=== PATIENT | female | born 1995 | race Caucasian/White ===

== ENCOUNTER 2017-04-28 17:52 | Emergency (ER) | payer MEDICAID ==
[~2017-04-28] VITALS: Ht 157.5 cm; Wt 81.8 kg
[2017-04-28 18:04] VITALS: BP 130/64; TEMP 98.2
[2017-04-28 21:37] VITALS: PULSE 85
== END 2017-04-28 21:39 | disposition home or self-care (01) ==
LOC: COL.ER 17:52
DX: O26.893 Other specified pregnancy related conditions, third trimester (principal); M25.561 Pain in right knee; O99.343 Other mental disorders complicating pregnancy, third trimester; F31.9 Bipolar disorder, unspecified; O99.333 Smoking (tobacco) complicating pregnancy, third trimester; F17.210 Nicotine dependence, cigarettes, uncomplicated; Z3A.30 30 weeks gestation of pregnancy

== ENCOUNTER 2017-06-06 22:26 | Outpatient (CLI) | payer MEDICAID ==
[~2017-06-06] VITALS: Ht 157.5 cm; Wt 81.8 kg
[2017-06-06 22:41] VITALS: BP 140/87; PULSE 82; TEMP 98.2
[2017-06-06 22:45] VITALS: BP 140/87; PULSE 82; TEMP 98.2
[2017-06-06] MEDS ORDERED: MELATONIN3 MG PO (22:49)
[2017-06-06] MEDS ORDERED: PRENATAL1 TA7 PO (22:49)
[2017-06-06 23:45] VITALS: BP 150/76; PULSE 91
[2017-06-07 00:02] LABS: COLLECTION METHOD CATHETER
[2017-06-07 00:10] LABS: PH 7 (5-8); SQUAMOUS EPITHELIAL 0-2 /hpf; URINE APPEARANCE Clear; URINE BACTERIA None Seen /hpf; URINE BILIRUBIN Negative (NEGATIVE); URINE BLOOD Negative (NEGATIVE); URINE COLOR Straw; URINE GLUCOSE Negative (NEGATIVE); URINE KETONE Negative (NEGATIVE); URINE LEUKOCYTE ESTERASE Negative (NEGATIVE); URINE PROTEIN(semi-quant) Negative (NEGATIVE); URINE RBC 0-2 /hpf; URINE UROBILINOGEN Negative (NEGATIVE); URINE WBC 0-2 /hpf
[2017-06-07 00:15] VITALS: BP 126/65; PULSE 81
== END 2017-06-07 00:35 | disposition home or self-care (01) ==
LOC: LDRO 22:26
PROVIDERS: Obstetrics & Gynecology
DX: O26.893 Other specified pregnancy related conditions, third trimester (principal); R10.9 Unspecified abdominal pain; Z3A.35 35 weeks gestation of pregnancy

== ENCOUNTER 2017-06-18 10:02 | Inpatient (IN) | payer MEDICAID ==
[~2017-06-18] VITALS: Ht 157.5 cm; Wt 85.5 kg
[~2017-06-18 10:02] MED LIST: MELATONIN3 MG PO; PRENATAL1 TA7 PO
[2017-07-11] VITALS (40 sets, daily range): BP systolic 108–1113; BP diastolic 57–92; PULSE 69–101; TEMP 98–98.8
[2017-07-11] MEDS ORDERED: ALBUTEROL0.83 MG/ML IH (07:40)
[2017-07-11] MEDS ORDERED: BREO IH (07:41)
[2017-07-11] MEDS ORDERED: SPIRIVA RE2.5 MCG/Ac IH (07:41)
[2017-07-11 08:06] LABS: HEMATOCRIT 34.5 % (37.0-47.0); HEMOGLOBIN 11.6 g/dl (12.5-16.0); MEAN CELL VOLUME 95 fl (80.0-100.0); MEAN CORPUSCULAR HEMOGLOBIN 32 pg (27.0-31.0); MEAN CORPUSCULAR HGB CONC 34 g/dl (33.0-37.0); MEAN PLATELET VOLUME 9.8 fl (7.4-10.4); PLATELET COUNT 288 K/mm3 (130-400); RED BLOOD COUNT 3.64 M/mm3 (4.10-5.30); WHITE BLOOD COUNT 16.1 K/mm3 (4.8-10.8)
[2017-07-11 08:07] LABS: ADD PATHOLOGY DIFF REVIEW NO
[2017-07-11 10:09] LABS: BAND 21 % (0-10); EOSINOPHIL 1 % (0-4); LYMPHOCYTE 25 % (20.0-51.0); NEUTROPHILS 47 % (42.0-75.2); PLATELET ESTIMATE NORMAL (NORMAL); TOTAL CELLS COUNTED 100
[2017-07-11] MEDS ORDERED: MOTRIN 800800 MG/TAB PO (11:16)
[2017-07-11] MEDS ORDERED: PERCOCET 325 MG1 TA2 PO (11:16)
[2017-07-12 00:32] VITALS: BP 134/84; PULSE 83
[2017-07-12 03:45] VITALS: BP 121/72; PULSE 88
[2017-07-12 07:45] VITALS: BP 113/66; PULSE 80; TEMP 98.4
[2017-07-12 11:30] VITALS: BP 122/69; PULSE 86; TEMP 98.2
[2017-07-12 16:00] VITALS: BP 133/63; PULSE 99; TEMP 98.1
[2017-07-12 22:10] VITALS: BP 138/72; PULSE 87; TEMP 98.6
[2017-07-13 07:00] VITALS: BP 132/79; PULSE 90; TEMP 98.3
== END 2017-07-13 11:03 | disposition home or self-care (01) | DRG 767 ==
LOC: EDSTATUS 07-07 08:20 → LDRO 07-07 10:02 → LDR 07-11 07:04 → OB 07-11 19:45
PROVIDERS: Obstetrics & Gynecology
PROC: 10D07Z6 Extraction of Products of Conception, Vacuum, Via Natural or Artificial Opening (ICD-10-PCS; principal; 2017-07-11)
PROC: 10D17Z9 Manual Extraction of Products of Conception, Retained, Via Natural or Artificial Opening (ICD-10-PCS; 2017-07-11)
PROC: 3E033VJ Introduction of Other Hormone into Peripheral Vein, Percutaneous Approach (ICD-10-PCS; 2017-07-11)
PROC: 0W8NXZZ Division of Female Perineum, External Approach (ICD-10-PCS; 2017-07-11)
DX: O48.0 Post-term pregnancy (principal); O76 Abnormality in fetal heart rate and rhythm complicating labor and delivery; O75.89 Other specified complications of labor and delivery; O73.0 Retained placenta without hemorrhage; O99.334 Smoking (tobacco) complicating childbirth; F17.210 Nicotine dependence, cigarettes, uncomplicated; Z3A.40 40 weeks gestation of pregnancy; Z37.0 Single live birth
CPT/HCPCS: J0690; J2210; J2590; J7120

== ENCOUNTER 2018-01-26 19:20 | Emergency (ER) | payer MEDICAID ==
[~2018-01-26] VITALS: Ht 160 cm; Wt 65.9 kg
[~2018-01-26 19:20] MED LIST changes: +ALBUTEROL0.83 MG/ML IH; +BREO IH; +MOTRIN 800800 MG/TAB PO; +PERCOCET 325 MG1 TA2 PO; +SPIRIVA RE2.5 MCG/Ac IH
[2018-01-26 19:22] VITALS: BP 143/79; TEMP 98.5
[2018-01-26] MEDS ORDERED: ZOFRAN ODT4 MG PO (19:55)
[2018-01-26 20:05] VITALS: PULSE 74
== END 2018-01-26 20:05 | disposition home or self-care (01) ==
LOC: COL.ER 19:20
DX: M79.7 Fibromyalgia (principal); J45.909 Unspecified asthma, uncomplicated

== ENCOUNTER 2018-02-15 10:25 | Emergency (ER) | payer MEDICAID ==
[~2018-02-15] VITALS: Ht 157.5 cm; Wt 69.3 kg
[~2018-02-15 10:25] MED LIST changes: +ZOFRAN ODT4 MG PO
[2018-02-15 10:27] VITALS: BP 118/75; PULSE 113; TEMP 99
[2018-02-15 11:14] LABS: BASO # 0.1 (0.0-0.2); BASO % 0.4 % (0.0-2.0); EOS # 0.1 (0.0-0.7); EOS % 0.8 % (0-4.0); GRAN # 13.3 (1.4-6.5); GRAN % 89.1 % (42.2-75.2); HEMATOCRIT 39.2 % (37.0-47.0); HEMOGLOBIN 13.2 g/dl (12.5-16.0); LYMPH # 0.6 (1.2-3.4); LYMPH % 4.1 % (20.0-51.0); MEAN CELL VOLUME 91 fl (80.0-100.0); MEAN CORPUSCULAR HEMOGLOBIN 31 pg (27.0-31.0); MEAN CORPUSCULAR HGB CONC 34 g/dl (33.0-37.0); MEAN PLATELET VOLUME 9.2 fl (7.4-10.4); MONO # 0.7 (0.1-0.6); MONO % 4.5 % (1.7-9.3); PLATELET COUNT 251 K/mm3 (130-400); REDCELL DISTRIBUTION WIDTH-CV 13.7 % (11.5-14.5)
[2018-02-15 11:24] LABS: CALCIUM 9.3 mg/dL (8.4-10.2); CREATININE, serum 0.63 mg/dL (0.52-1.25); POTASSIUM 3.9 mmol/L (3.4-5.0)
[2018-02-15 11:25] LABS: COLLECTION METHOD CATHETER
[2018-02-15 11:31] LABS: PH 7 (5-8); SQUAMOUS EPITHELIAL 0-2 /hpf; URINE APPEARANCE Clear; URINE BACTERIA Rare /hpf; URINE BILIRUBIN Negative (NEGATIVE); URINE BLOOD 1+ (NEGATIVE); URINE COLOR Straw; URINE GLUCOSE Negative (NEGATIVE); URINE KETONE Trace (NEGATIVE); URINE LEUKOCYTE ESTERASE Negative (NEGATIVE); URINE NITRATE Negative (NEGATIVE); URINE PROTEIN(semi-quant) Negative (NEGATIVE); URINE RBC None Seen /hpf; URINE UROBILINOGEN Negative (NEGATIVE)
[2018-02-15] MEDS ORDERED: NORCO 325 MG-51 TAB PO (12:03)
[2018-02-15] MEDS ORDERED: ZOFRAN ODT4 MG PO (14:30)
[2018-02-16] VITALS (79 sets, daily range): O2SAT 95–99
[2018-02-17] VITALS (257 sets, daily range): O2SAT 94–100
== END 2018-02-15 12:19 | disposition home or self-care (01) ==
LOC: COL.ER 10:25
PROVIDERS: Physician Assistant
DX: R52 Pain, unspecified (principal); D72.829 Elevated white blood cell count, unspecified; F41.9 Anxiety disorder, unspecified; F32.9 Major depressive disorder, single episode, unspecified; M79.7 Fibromyalgia

== ENCOUNTER 2018-02-16 15:14 | Inpatient (IN) | payer MEDICAID ==
[~2018-02-16] VITALS: Ht 157.5 cm; Wt 70.4 kg
[~2018-02-16 15:14] MED LIST changes: +NORCO 325 MG-51 TAB PO
[2018-02-16 16:05] LABS: COLLECTION METHOD CLEAN CATCH
[2018-02-16 16:12] LABS: HEMATOCRIT 37.6 % (37.0-47.0); HEMOGLOBIN 12.7 g/dl (12.5-16.0); MEAN CELL VOLUME 90 fl (80.0-100.0); MEAN CORPUSCULAR HEMOGLOBIN 31 pg (27.0-31.0); MEAN CORPUSCULAR HGB CONC 34 g/dl (33.0-37.0); MEAN PLATELET VOLUME 9.4 fl (7.4-10.4); PLATELET COUNT 192 K/mm3 (130-400); RED BLOOD COUNT 4.16 M/mm3 (4.10-5.30)
[2018-02-16 16:19] LABS: MUCOUS Present /lpf; PH 5 (5-8); URINE APPEARANCE Cloudy; URINE BACTERIA Rare /hpf; URINE BILIRUBIN Positive (NEGATIVE); URINE BLOOD 2+ (NEGATIVE); URINE COLOR Amber; URINE GLUCOSE Negative (NEGATIVE); URINE KETONE 1+ (NEGATIVE); URINE LEUKOCYTE ESTERASE Negative (NEGATIVE); URINE NITRATE Negative (NEGATIVE); URINE PROTEIN(semi-quant) 2+ (NEGATIVE); URINE UROBILINOGEN >=4.0 mg/dL (NEGATIVE)
[2018-02-16 16:32] LABS: ALBUMIN 3.2 gm/dL (3.5-5.0); BILIRUBIN,TOTAL 1.2 mg/dL (0.0-1.0); CALCIUM 8.4 mg/dL (8.4-10.2); CREATININE, serum 1.1 mg/dL (0.52-1.25); POTASSIUM 3.4 mmol/L (3.4-5.0); TOTAL PROTEIN 6.1 gm/dL (6.4-8.2)
[2018-02-16 16:40] LABS: BAND 27 % (0-10); EOSINOPHIL 3 % (0-4); LYMPHOCYTE 3 % (20.0-51.0); NEUTROPHILS 66 % (42.0-75.2); PLATELET ESTIMATE NORMAL (NORMAL)
[2018-02-16 16:41] LABS: ANISOCYTOSIS 1+
[2018-02-16 19:02] LABS: GLUCOSE,CSF 52 mg/dL (40-70); TOTAL PROTEIN,CSF 21 mg/dL (15-45)
[2018-02-16 19:18] LABS: CSF APPEARANCE CLEAR; CSF COLOR COLORLESS; CSF RBC 3 /mm3 (0-0)
[2018-02-16 19:19] LABS: CSF COLOR COLORLESS
[2018-02-16 19:20] LABS: CSF APPEARANCE CLEAR; CSF RBC 0 /mm3 (0-0)
[2018-02-16 19:53] LABS: CSF MONONUCLEAR 0 % (70-100); CSF MONONUCLEAR 10 % (70-100); CSF POLYMORPHONUCLEAR 0 % (0-6)
[2018-02-16 21:00] VITALS: BP 81/49; BP 99/58; PULSE 87; TEMP 97.9
[2018-02-16 22:02] LABS: SALICYLATE < 1.0 mg/dL
[2018-02-16 22:19] LABS: LITHIUM < 0.2 mmol/L (0.6-1.2)
[2018-02-16 22:26] LABS: TRICYCLIC ANTIDEPRESS URINE NEGATIVE
[2018-02-17] VITALS: BP 99/59; PULSE 76; TEMP 97.4
[2018-02-17 04:00] VITALS: BP 105/60; PULSE 61; TEMP 97.5
[2018-02-17 05:52] LABS: MEAN CELL VOLUME 89 fl (80.0-100.0); MEAN CORPUSCULAR HGB CONC 34 g/dl (33.0-37.0); MEAN PLATELET VOLUME 9.9 fl (7.4-10.4); PLATELET COUNT 175 K/mm3 (130-400); RED BLOOD COUNT 3.44 M/mm3 (4.10-5.30); REDCELL DISTRIBUTION WIDTH-CV 14.2 % (11.5-14.5)
[2018-02-17 05:55] LABS: HEMATOCRIT 30.5 % (37.0-47.0); MEAN CORPUSCULAR HEMOGLOBIN 30 pg (27.0-31.0)
[2018-02-17 05:56] LABS: HEMOGLOBIN 10.3 g/dl (12.5-16.0)
[2018-02-17 06:10] LABS: ALBUMIN 2.4 gm/dL (3.5-5.0); BILIRUBIN,TOTAL 0.3 mg/dL (0.0-1.0); CREATININE, serum 0.62 mg/dL (0.52-1.25); POTASSIUM 3.8 mmol/L (3.4-5.0); TOTAL PROTEIN 4.9 gm/dL (6.4-8.2)
[2018-02-17 06:50] LABS: BAND 36 % (0-10); LYMPHOCYTE 6 % (20.0-51.0); NEUTROPHILS 58 % (42.0-75.2)
[2018-02-17 06:53] LABS: PLATELET ESTIMATE NORMAL (NORMAL)
[2018-02-17 06:54] LABS: BURR CELLS 1+; OVALOCYTES 2+
[2018-02-17 08:15] VITALS: BP 103/61; PULSE 61; TEMP 98
[2018-02-17 14:37] LABS: COLLECTION METHOD CLEAN CATCH
[2018-02-17 14:44] LABS: MUCOUS Present /lpf; PH 6 (5-8); SQUAMOUS EPITHELIAL 0-2 /hpf; URINE APPEARANCE Hazy; URINE BACTERIA Rare /hpf; URINE BILIRUBIN Negative (NEGATIVE); URINE BLOOD 2+ (NEGATIVE); URINE COLOR Yellow; URINE GLUCOSE Negative (NEGATIVE); URINE KETONE Trace (NEGATIVE); URINE LEUKOCYTE ESTERASE Negative (NEGATIVE); URINE NITRATE Negative (NEGATIVE); URINE PROTEIN(semi-quant) Negative (NEGATIVE); URINE RBC 0-2 /hpf; URINE UROBILINOGEN Negative (NEGATIVE)
[2018-02-17] MEDS ORDERED: TYLENOL 325MG325 MG PO (15:13)
[2018-02-17] MEDS ORDERED: OMNICEF 300MG300 MG PO (15:14)
[2018-02-18 03:00] LABS: BARBITURATE SCREEN BLOOD Not Detected (()); BENZODIAZEPINE SCREEN BLOOD Not Detected (()); DRUG SCREEN BLD - ALCOHOL None Detected (()); SALICYLATE SCREEN BLOOD Not Detected (()); TRICYCLIC SCREEN BLOOD Not Detected (())
== END 2018-02-17 15:39 | disposition left against medical advice (07) | DRG 872 ==
LOC: COL.ER 15:14 → ICU 20:10
PROVIDERS: Emergency Medicine; Nurse Practitioner Family; Physician Assistant
PROC: 009U3ZX Drainage of Spinal Canal, Percutaneous Approach, Diagnostic (ICD-10-PCS; principal; 2018-02-16)
DX: A41.9 Sepsis, unspecified organism (principal); N39.0 Urinary tract infection, site not specified; E87.2 Acidosis; E87.1 Hypo-osmolality and hyponatremia; F31.9 Bipolar disorder, unspecified; M79.7 Fibromyalgia; J45.909 Unspecified asthma, uncomplicated; F17.210 Nicotine dependence, cigarettes, uncomplicated; E87.8 Other disorders of electrolyte and fluid balance, not elsewhere classified
CPT/HCPCS: 99223-AI; J0133; J0696; J1100; J2270; J2405; J2543; J2920; J3370; J7030; J7040; J7050; Q9967

== ENCOUNTER → 2018-03-10 | Outpatient (CLI) | payer MEDICAID ==
[~2018-03-10] MED LIST changes: +OMNICEF 300MG300 MG PO; +TYLENOL 325MG325 MG PO
== END ==
LOC: COL.RAD 03-03 13:15
DX: M54.5 Low back pain (principal)

== ENCOUNTER 2018-04-07 20:35 | Emergency (ER) | payer MEDICAID ==
[~2018-04-07] VITALS: Ht 157.5 cm; Wt 65.9 kg
[2018-04-07 20:42] VITALS: TEMP 98.7
[2018-04-07 21:24] LABS: BASO # 0.1 (0.0-0.2); BASO % 0.5 % (0.0-2.0); EOS # 0.3 (0.0-0.7); EOS % 2.6 % (0-4.0); GRAN # 5.6 (1.4-6.5); GRAN % 57.7 % (42.2-75.2); HEMATOCRIT 38.2 % (37.0-47.0); HEMOGLOBIN 13.1 g/dl (12.5-16.0); LYMPH # 2.9 (1.2-3.4); LYMPH % 30.4 % (20.0-51.0); MEAN CELL VOLUME 88 fl (80.0-100.0); MEAN CORPUSCULAR HEMOGLOBIN 30 pg (27.0-31.0); MEAN CORPUSCULAR HGB CONC 34 g/dl (33.0-37.0); MEAN PLATELET VOLUME 8.9 fl (7.4-10.4); MONO # 0.8 (0.1-0.6); MONO % 8.3 % (1.7-9.3); PLATELET COUNT 264 K/mm3 (130-400); RED BLOOD COUNT 4.33 M/mm3 (4.10-5.30); REDCELL DISTRIBUTION WIDTH-CV 13.2 % (11.5-14.5)
[2018-04-07 22:08] LABS: BILIRUBIN,TOTAL 0.2 mg/dL (0.0-1.0); CALCIUM 9.1 mg/dL (8.4-10.2); CREATININE, serum 0.6 mg/dL (0.52-1.25); POTASSIUM 3.7 mmol/L (3.4-5.0)
[2018-04-07 22:27] LABS: COLLECTION METHOD CATHETER
[2018-04-07 22:30] LABS: C-REACTIVE PROTEIN 0.8 mg/dL (0.0-0.9)
[2018-04-07 22:37] LABS: MUCOUS Present /lpf; PH 6 (5-8); URINE APPEARANCE Hazy; URINE BACTERIA Rare /hpf; URINE BILIRUBIN Negative (NEGATIVE); URINE BLOOD 2+ (NEGATIVE); URINE COLOR Yellow; URINE GLUCOSE Negative (NEGATIVE); URINE KETONE Negative (NEGATIVE); URINE LEUKOCYTE ESTERASE Trace (NEGATIVE); URINE NITRATE Negative (NEGATIVE); URINE PROTEIN(semi-quant) Negative (NEGATIVE); URINE UROBILINOGEN Negative (NEGATIVE)
[2018-04-07 23:31] VITALS: BP 112/65; PULSE 69
[2018-04-07] MEDS ORDERED: MACROBID 1100 MG/CAP PO (23:31)
== END 2018-04-07 23:45 | disposition home or self-care (01) ==
LOC: COL.ER 20:35
PROVIDERS: Physician Assistant
DX: O23.91 Unspecified genitourinary tract infection in pregnancy, first trimester (principal); O99.331 Smoking (tobacco) complicating pregnancy, first trimester; F17.210 Nicotine dependence, cigarettes, uncomplicated; Z90.89 Acquired absence of other organs; Z3A.01 Less than 8 weeks gestation of pregnancy

== ENCOUNTER 2018-04-15 18:50 | Emergency (ER) | payer MEDICAID ==
[~2018-04-15] VITALS: Ht 157.5 cm; Wt 68.2 kg
[~2018-04-15 18:50] MED LIST changes: +MACROBID 1100 MG/CAP PO
[2018-04-15 18:54] VITALS: TEMP 98.8
[2018-04-15] MEDS ORDERED: ZOLOFT 50MG50 MG PO (19:01)
[2018-04-15 19:14] LABS: COLLECTION METHOD CLEAN CATCH
[2018-04-15 19:17] LABS: BASO # 0.1 (0.0-0.2); BASO % 0.4 % (0.0-2.0); EOS # 0.3 (0.0-0.7); EOS % 2.2 % (0-4.0); GRAN # 6.5 (1.4-6.5); GRAN % 55.3 % (42.2-75.2); HEMOGLOBIN 12.8 g/dl (12.5-16.0); LYMPH # 4.1 (1.2-3.4); MEAN CELL VOLUME 89 fl (80.0-100.0); MEAN CORPUSCULAR HEMOGLOBIN 30 pg (27.0-31.0); MEAN CORPUSCULAR HGB CONC 34 g/dl (33.0-37.0); MEAN PLATELET VOLUME 8.7 fl (7.4-10.4); MONO # 0.8 (0.1-0.6); MONO % 6.6 % (1.7-9.3); PLATELET COUNT 294 K/mm3 (130-400); RED BLOOD COUNT 4.25 M/mm3 (4.10-5.30); REDCELL DISTRIBUTION WIDTH-CV 13.2 % (11.5-14.5)
[2018-04-15 19:23] LABS: AMORPHOUS CRYSTAL Present /uL; MUCOUS Present /lpf; PH 6 (5-8); SQUAMOUS EPITHELIAL 0-2 /hpf; URINE APPEARANCE Hazy; URINE BACTERIA Rare /hpf; URINE BILIRUBIN Negative (NEGATIVE); URINE BLOOD Negative (NEGATIVE); URINE COLOR Yellow; URINE GLUCOSE Negative (NEGATIVE); URINE KETONE Negative (NEGATIVE); URINE LEUKOCYTE ESTERASE Negative (NEGATIVE); URINE NITRATE Negative (NEGATIVE); URINE PROTEIN(semi-quant) Negative (NEGATIVE); URINE RBC 0-2 /hpf; URINE UROBILINOGEN Negative (NEGATIVE)
[2018-04-15 19:28] LABS: BILIRUBIN,TOTAL 0.1 mg/dL (0.0-1.0); CALCIUM 9.8 mg/dL (8.4-10.2); CREATININE, serum 0.51 mg/dL (0.52-1.25); POTASSIUM 3.6 mmol/L (3.4-5.0); TOTAL PROTEIN 6.9 gm/dL (6.4-8.2)
[2018-04-15 21:59] VITALS: BP 114/59; PULSE 71
== END 2018-04-15 22:24 | disposition home or self-care (01) ==
LOC: COL.ER 18:50
PROVIDERS: Emergency Medicine
DX: O20.0 Threatened abortion (principal); O99.331 Smoking (tobacco) complicating pregnancy, first trimester; Z3A.08 8 weeks gestation of pregnancy; F17.210 Nicotine dependence, cigarettes, uncomplicated

== ENCOUNTER 2018-07-12 18:39 | Emergency (ER) | payer MEDICAID ==
[~2018-07-12] VITALS: Ht 157.5 cm; Wt 70.5 kg
[~2018-07-12 18:39] MED LIST changes: +ZOLOFT 50MG50 MG PO
[2018-07-12 18:42] VITALS: BP 105/65; TEMP 98.4
[2018-07-12 19:47] VITALS: PULSE 90
== END 2018-07-12 19:48 | disposition home or self-care (01) ==
LOC: COL.ER 18:39
DX: J06.9 Acute upper respiratory infection, unspecified (principal); F32.9 Major depressive disorder, single episode, unspecified; J45.909 Unspecified asthma, uncomplicated; F17.210 Nicotine dependence, cigarettes, uncomplicated; F41.9 Anxiety disorder, unspecified; Z90.89 Acquired absence of other organs

== ENCOUNTER 2018-09-09 21:28 | Outpatient (CLI) | payer OTHER, MEDICAID ==
[~2018-09-09] VITALS: Ht 157.5 cm; Wt 80.0 kg
--- NOTE | 2018-09-09 21:40 | NUR ---
Pt arrived on unit for complaints of ctx starting around 1830. Pt denies any leaking of fluid, reports some spotting but also reports issues with spotting from beginning of and reports normal movement. EFM and toco monitors started. Vital signs WNL. SVE 0/0/high with no signs of fluid or bleeding on exam. Spoke with Dr. Dias. Pt's complaints, SVE and FHR tracing reviewed. Orders for labor assessment received. Plan of care reviewed with pt.
[2018-09-09 21:46] VITALS: BP 115/62; PULSE 93; TEMP 98.5
--- NOTE | 2018-09-10 | NUR ---
Order for discharge home received. Pt discharged home ambulatory escorted by family member. Discharge instructions reviewed. Pt verbalized an understanding, agrees with the plan and states no questions or concerns.
== END 2018-09-10 | disposition home or self-care (01) ==
LOC: LDRO 21:28
DX: O26.893 Other specified pregnancy related conditions, third trimester (principal); R25.2 Cramp and spasm; Z3A.29 29 weeks gestation of pregnancy

== ENCOUNTER 2018-09-11 18:39 | Outpatient (CLI) | payer OTHER, MEDICAID ==
[~2018-09-11] VITALS: Ht 160 cm; Wt 80.9 kg
--- NOTE | 2018-09-11 18:55 | NUR ---
Pt arrives to unit ambulatory with complaint of contractions. Pt is a at 29 weeks and 4 days, 1 previous term vaginal delivery. Pt reports cramping and pain has gotten worse since yesterday. Was checked in the office on the and was closed. UA and affirm negative in office. Pt is unable to tell me how frequently she feels contractions. Pt oriented to room and changed into gown. EFM and toco explained and applied. Vital signs obtained. Plan of care reviewed. 1904 SVE /-3
[2018-09-11 19:30] VITALS: BP 112/73; PULSE 93; TEMP 98.7
[2018-09-11 20:00] VITALS: BP 113/62; PULSE 91
--- NOTE | 2018-09-11 20:00 | NUR ---
Monitors removed so patient can void. 1 contraction traced on toco. Pt does not appear to be in pain or having contractions.
[2018-09-11 20:40] VITALS: BP 125/71; PULSE 96
--- NOTE | 2018-09-11 20:40 | NUR ---
Pt discharged home at this time. Encouraged rest over the weekend and hydration. Discharge instructions and return precautions reviewed. Pt verbalized understanding.
[2018-09-11 20:43] LABS: TRICYCLIC ANTIDEPRESS URINE NEGATIVE
== END 2018-09-11 20:40 | disposition home or self-care (01) ==
LOC: LDRO 18:39
PROVIDERS: Obstetrics & Gynecology
DX: O62.9 Abnormality of forces of labor, unspecified (principal); Z3A.29 29 weeks gestation of pregnancy

== ENCOUNTER → 2018-09-13 | Outpatient (CLI) | payer OTHER, MEDICAID ==
[~2018-09-13] VITALS: Ht 160 cm; Wt 80.9 kg
[2018-09-13 17:34] VITALS: BP 115/67; PULSE 92; TEMP 98.4
[2018-09-13 17:45] VITALS: BP 115/67; PULSE 92; TEMP 98.4
--- NOTE | 2018-09-13 18:27 | NUR ---
1749 DR MADDEN NOTFIED OF PT PRESENCE AND ORDER FOR DISCHARGE RECD. PLAN DISCUSSED WITH PT AND VERBALIZES UNDERSTANDING AND ACCE[TANCE. NO CONTRACTIONS SINCE ADMISSION AND NO CHANGE IN SVE FROM YESTERDAY'S EXAM. 1754 DISCHARGED TO SELF CARE WITH INSTRUCTIONS.
== END ==
LOC: LDRO 17:08
DX: O62.9 Abnormality of forces of labor, unspecified (principal); Z3A.29 29 weeks gestation of pregnancy

== ENCOUNTER → 2018-10-20 | Outpatient (CLI) | payer OTHER, MEDICAID | LOC: LDRO 20:34 | DX: O26.893 Other specified pregnancy related conditions, third trimester (principal); R10.30 Lower abdominal pain, unspecified; R10.2 Pelvic and perineal pain; Z3A.35 35 weeks gestation of pregnancy ==

== ENCOUNTER 2018-11-01 21:02 | Outpatient (CLI) | payer OTHER, MEDICAID ==
[~2018-11-01] VITALS: Ht 162.6 cm; Wt 85.9 kg
--- NOTE | 2018-11-01 21:20 | NUR ---
2119 G2L1 36.6 WEEK GEST TO LR5 WITH C/O CONTRACTIONS SINCE YESTERDAY BECOMING WORSE TONIGHT. EFM ON. CONTRACTION NOTED ON MONITER AT 2129. PT C/O HAVING LOW ABD PAIN ABOUT EVERY TWO MINUTES THAT IS SHARP AND THEN GOES DULL. UTERUS PALPATED WITH PAIN AND REMAINS SOFT. FHT'S 170'S WITH ACCELS TO 180. SVE DONE WITH /-3. 2139 TO LL AND WATER GIVEN TO DRINK. ADM ASSESSMENT DONE.
[2018-11-01 21:30] VITALS: BP 137/75; PULSE 99; TEMP 98.6
[2018-11-01] MEDS ORDERED: TAMIFLU 75MG75 MG PO (21:31)
[2018-11-01 21:33] VITALS: BP 137/75; PULSE 99; TEMP 98.6
[2018-11-01 22:00] VITALS: BP 113/65; PULSE 99
--- NOTE | 2018-11-01 22:00 | NUR ---
2199 DR BROWN NOTIFIED OF PT AND COMPLAINT AND CONTRACTIONS AND FHT'S. FHT'S BASE 160 WITH GOOD VARIABILITY. MOM ASKED ON ADM IS SHE SMOKED AND SHE SAID YET BUT HAS NOT HAD A CIG FOR SEVERAL HOURS. STATES HAS NOT FELT THE BABY MOVE LATELY BUT BABY CAN BE SEEN MOVING. 2229 TURNED TO RIGHT LATERAL FOR COMFORT.
--- NOTE | 2018-11-01 22:40 | NUR ---
FHT BASE 130 WITH GOOD VARIABILTY. STATES ABD PAIN IS ABOUT THE SAME BUT IRREGULAR CONTRACTIONS NOTED BUT NOT CORRELATED WITH C/O PAIN. 2245 EFM OFF AND DISCHARGE INSTRUCTIONS GIVEN 2255 HOME WITH INSTRUCTIONS.
== END 2018-11-01 22:55 | disposition home or self-care (01) ==
LOC: LDRO 21:02
DX: O62.9 Abnormality of forces of labor, unspecified (principal); Z3A.36 36 weeks gestation of pregnancy

== ENCOUNTER 2018-11-06 21:01 | Outpatient (CLI) | payer OTHER, MEDICAID ==
[~2018-11-06] VITALS: Ht 157.5 cm; Wt 88.6 kg
[~2018-11-06 21:01] MED LIST changes: +TAMIFLU 75MG75 MG PO
--- NOTE | 2018-11-06 21:15 | NUR ---
at 37 weeks and 4 days arrives to unit with complaint of contractions about every 7-10 minutes at home. Pt reports the contractions take her breath away and are much worse than when she has been here before. Denies headaches, blurry vision, or RUQ pain. Pt oriented to room, bed in low and locked position, call light within reach. EFM and toco explained and applied. Pt denies LOF, reports she lost her mucous plus today, denies bleeding, reports good movement. SVE 3/80/-2 membranes intact. Vital signs obtained, admission assessment started.
[2018-11-06 21:30] VITALS: BP 133/78; PULSE 91; TEMP 97.8
--- NOTE | 2018-11-06 22:40 | NUR ---
SVE unchanged from previous exam. Pt discharged home at this time. Discharge instructions reviewed and return precautions explained to patient. Pt verbalized understanding. Pt seen walking off unit.
== END 2018-11-06 22:50 | disposition home or self-care (01) ==
LOC: LDRO 21:01
DX: O62.9 Abnormality of forces of labor, unspecified (principal); Z3A.37 37 weeks gestation of pregnancy

== ENCOUNTER 2018-11-08 20:19 | Outpatient (CLI) | payer OTHER, MEDICAID ==
[~2018-11-08] VITALS: Ht 157.5 cm; Wt 88.2 kg
--- NOTE | 2018-11-08 20:30 | NUR ---
2029- Patient ambulatory to [facility] with ink technician and friend. Patient oriented to room. Patient into restroom to change into gown. 2030- EFM and TOCO on and tracing. Patient here with complaints of possible SROM while she was on the toilet earlier this evening. She says she has had increased clear discharge since 11/06/18 after she lost her mucus plug. Patient was seen on L&D unit on 11/06/18 for contractions. Patient states contractions are intermittently 7-10 minutes apart and have been this way for about 1-2 weeks. Patient admits to decreased movement today. Patient states she has had 96oz of water today. Patient denies bleeding or spotting. 2044- Amniotrace negative. SVE /2 and difficult due to patient discomfort and movement during SVE. Assessment completed. VSS.
[2018-11-08 20:37] VITALS: BP 124/77; PULSE 94; TEMP 98.9
[2018-11-08 21:18] VITALS: BP 124/74; PULSE 96
--- NOTE | 2018-11-08 21:30 | NUR ---
2049- updated. Ok to discharge home. 2114- Discharge instructions explained to patient. Encouraged patient to follow up with the office tomorrow and keep all upcoming OB appointments. ' 2129- Patient ambulatory off L&D unit with friend.
== END 2018-11-08 21:30 | disposition home or self-care (01) ==
LOC: LDRO 20:19 → LDR 21:26 → LDRO 21:30 → LDR 21:30
DX: Z34.93 Encounter for supervision of normal pregnancy, unspecified, third trimester (principal); Z3A.37 37 weeks gestation of pregnancy
CPT/HCPCS: OP

== ENCOUNTER 2018-11-08 23:34 | Inpatient (IN) | payer OTHER, MEDICAID ==
[~2018-11-08] VITALS: Ht 157.5 cm; Wt 86.4 kg
--- NOTE | 2018-11-08 23:45 | NUR ---
HERE WITH SISTER CLAIMING SROM CLER AT 2330. SOAKED 2 PAIR OF PANTS NOW RUNNING DOWN LEG. LIFETRACE POSITVE./-2. EFM ON . REPORT TO DR HOROWITZ AT L/D DESK
[2018-11-09] VITALS (42 sets, daily range): BP systolic 102–146; BP diastolic 55–90; PULSE 55–105; TEMP 97.4–98.6
[2018-11-09 02:13] LABS: HEMATOCRIT 29.9 % (37.0-47.0); HEMOGLOBIN 10.2 g/dl (12.5-16.0); MEAN CELL VOLUME 94 fl (80.0-100.0); MEAN CORPUSCULAR HEMOGLOBIN 32 pg (27.0-31.0); MEAN CORPUSCULAR HGB CONC 34 g/dl (33.0-37.0); MEAN PLATELET VOLUME 9.8 fl (7.4-10.4); PLATELET COUNT 236 K/mm3 (130-400); RED BLOOD COUNT 3.19 M/mm3 (4.10-5.30)
[2018-11-09 02:33] LABS: BAND 14 % (0-10); LYMPHOCYTE 29 % (20.0-51.0); NEUTROPHILS 54 % (42.0-75.2)
[2018-11-09 02:34] LABS: PLATELET ESTIMATE NORMAL (NORMAL)
[2018-11-09 02:35] LABS: SCHISTOCYTES 1+
--- NOTE | 2018-11-09 04:30 | NUR ---
TO RT SIDE DUE TO 2 LATE DECELS. IV FLUIDS STARTED
--- NOTE | 2018-11-09 06:22 | NUR ---
Patient requesting an epidural at this time before pitocin started. Epidural order received from Dr. Billy.
--- NOTE | 2018-11-09 06:35 | NUR ---
0635: Patient off monitors and up to bathroom to void. Clean catch UA collected for possible UDS. 0645: Patient sitting up at side of bed for epidural placement. Andrew Marks CRNA in room and epidural explained. 0649: Epidural catheter placed. 0650: Test dose given and no reaction to test dose. Epidural secured to patients back and patient repositioned resting wedged left at 0700.
--- NOTE | 2018-11-09 07:30 | NUR ---
0730: Pitocin started per order.
[2018-11-09 07:44] LABS: TRICYCLIC ANTIDEPRESS URINE NEGATIVE
--- NOTE | 2018-11-09 07:50 | NUR ---
0740: FHR deceleration down to 120 bpm from baseline of 135 bpm. Patient repositioned to far left lateral. 0755: Patient reports feeling nauseated. BP 92/51, pulse 73. LR bolus started. 0754: Ephedrine 10mg given IVP. 0800: BP 116/58, pulse 75. Patient states she is still feeling nauseated. Given Zofran IVP
--- NOTE | 2018-11-09 08:05 | NUR ---
0800: Dr. Correa at nurses station and reviews FHR since admit. 0805: Dr. Correa at bedside. SVE /-2, bag of lawrence felt with exam and AROM with small amount of clear fluid noted. Verbal order from Dr. Correa to continue with pitocin augmentation.
--- NOTE | 2018-11-09 10:20 | NUR ---
1020: FHR not tracing consistently. Internal scalp electrode placed and tracing FHR well. SVE -//-1. Dr. Correa called with an update.
--- NOTE | 2018-11-09 10:48 | NUR ---
1040: Patient feeling increased rectal pressure during contractions. SVE 10/100/+2. Dr Correa called for delivery at 1040. [place] catheter removed and patient prepped for delivery. 1045: Dr. Correa in room for delivery. Patient pushes through 1 contraction and spontaneous vaginal delivery of infant head immediately followed by body at 1048. to mothers abdomen where dried and stimulated byLara Posey RN. Umbilical cord cut by father of baby with assist from Dr. Correa. Perineum intact. 1050: Spontaneous and intact delivery of placenta. Fundus massaged, firm and at umbilicus. Pitocin restarted at 333ml/hr. Pericare provided and patient sitting up in bed holding . See anesthesia records, doctor dictation and labor and delivery record.
--- NOTE | 2018-11-09 11:45 | NUR ---
With fundal massage, moderate amount of free flow noted and two baseball sized clots expressed. Fundus firms with massage. Dr. Correa called and orders received.
--- NOTE | 2018-11-09 11:56 | NUR ---
Given Methergine IM and Cytotec rectally per Dr. Correa orders.
--- NOTE | 2018-11-09 13:15 | NUR ---
Epidural catheter removed, blue tip intact, band aid to site. IV to INT. Fundus massaged, at umbilicus and firm. Patient ambulates to bathroom with assist times 1. Able to void, pericare provided, new gown on and patient taken to room 208. Oriented to room and call light. Patient resting in bed, call light in reach.
--- NOTE | 2018-11-10 08:59 | NUR ---
Initial visit; Ivis thanked for offering congratulations to her and her for the of their daughter. thanked them for choosing [facility].
[2018-11-10] MEDS ORDERED: MOTRIN 800800 MG/TAB PO (09:14)
== END 2018-11-10 13:15 | disposition home or self-care (01) | DRG 807 ==
LOC: LDRO 23:34 → LDR 23:45 → OB 23:45 → LDR 11-09 08:52 → OB 11-09 14:01
PROVIDERS: Obstetrics & Gynecology; ADMIT Obstetrics & Gynecology
PROC: 10E0XZZ Delivery of Products of Conception, External Approach (ICD-10-PCS; principal; 2018-11-09)
DX: O42.02 Full-term premature rupture of membranes, onset of labor within 24 hours of rupture (principal); Z37.0 Single live birth; Z3A.38 38 weeks gestation of pregnancy; J45.909 Unspecified asthma, uncomplicated; O99.52 Diseases of the respiratory system complicating childbirth; O99.344 Other mental disorders complicating childbirth; F41.8 Other specified anxiety disorders; F31.9 Bipolar disorder, unspecified; O99.334 Smoking (tobacco) complicating childbirth; K21.9 Gastro-esophageal reflux disease without esophagitis; O99.62 Diseases of the digestive system complicating childbirth; O62.0 Primary inadequate contractions; O71.82 Other specified trauma to perineum and vulva
CPT/HCPCS: J2210; J2405; J2590; J7120

== ENCOUNTER → 2019-01-01 | Outpatient (CLI) | payer OTHER, MEDICAID ==
[~2019-01-01] VITALS: Ht 157.5 cm; Wt 84.0 kg
[2019-01-01] VITALS (7 sets, daily range): BP systolic 104–122; BP diastolic 56–71; PULSE 70–98; TEMP 98.6–98.7
== END ==
LOC: LDRO 13:01 → OB 13:01 → LDRO 01-03 13:01
DX: Z51.89 Encounter for other specified aftercare (principal); O72.2 Delayed and secondary postpartum hemorrhage; D62 Acute posthemorrhagic anemia
CPT/HCPCS: OP; G0378; J7050; P9016

== ENCOUNTER 2019-01-02 21:48 | Emergency (ER) | payer OTHER, MEDICAID ==
[~2019-01-02] VITALS: Ht 157.5 cm; Wt 76.8 kg
[2019-01-02 21:54] VITALS: BP 125/68; TEMP 98.7
[2019-01-02 23:19] LABS: BASO # 0.1 (0.0-0.2); BASO % 0.6 % (0.0-2.0); EOS # 0.2 (0.0-0.7); EOS % 2.7 % (0-4.0); GRAN # 3.5 (1.4-6.5); GRAN % 44.6 % (42.2-75.2); LYMPH # 3.4 (1.2-3.4); LYMPH % 43.8 % (20.0-51.0); MEAN CELL VOLUME 91 fl (80.0-100.0); MEAN CORPUSCULAR HGB CONC 32 g/dl (33.0-37.0); MEAN PLATELET VOLUME 9.1 fl (7.4-10.4); MONO # 0.6 (0.1-0.6); MONO % 7.5 % (1.7-9.3); PLATELET COUNT 292 K/mm3 (130-400); REDCELL DISTRIBUTION WIDTH-CV 14.6 % (11.5-14.5)
[2019-01-02 23:20] LABS: HEMATOCRIT 29.1 % (37.0-47.0); HEMOGLOBIN 9.4 g/dl (12.5-16.0); MEAN CORPUSCULAR HEMOGLOBIN 29 pg (27.0-31.0)
[2019-01-02 23:24] LABS: PROTHROMBIN TIME 11.8 SECONDS (9.7-12.8)
[2019-01-02 23:27] LABS: PARTIAL THROMBOPLASTIN TIME 37.6 SECONDS (26.0-37.0)
[2019-01-02 23:29] LABS: CALCIUM 8.8 mg/dL (8.4-10.2); CREATININE, serum 0.63 (0.52-1.25); POTASSIUM 3.7 mmol/L (3.4-5.0)
[2019-01-03 00:40] VITALS: PULSE 79
== END 2019-01-03 00:40 | disposition home or self-care (01) ==
LOC: COL.ER 21:48
PROVIDERS: Emergency Medicine
DX: N93.9 Abnormal uterine and vaginal bleeding, unspecified (principal); F31.9 Bipolar disorder, unspecified; F17.210 Nicotine dependence, cigarettes, uncomplicated; Z98.51 Tubal ligation status
CPT/HCPCS: J2405; J3010; J7030